=== PATIENT | male | born 1955 | race Caucasian/White ===

== ENCOUNTER 2022-09-28 06:03 | Day surgery (SDC) | payer OTHER, SELFPAY ==
[2022-09-28] VITALS (7 sets, daily range): BP systolic 93–137; BP diastolic 56–91; PULSE 55–61; RESP 16; TEMP 36.1–37.1; O2SAT 93–96; BMI 38.0
[2022-09-28] MEDS: LACTATED RINGERS 1000 ML 1,000 ML 100 ML IV ×2 (06:41→08:26)
[2022-09-28] MEDS: SODIUM CHLORIDE 0.9 % (FLUSH) 10 ML SYRINGE IVF (06:42)
--- NOTE | 2022-09-28 06:43 | SUR.PREOP ---
patient did home covid test on 09/27. nurse viewed home test and appeared negative with only 1 line.
--- NOTE | 2022-09-28 07:15 | CRLHL7_ITS ---
For Patients: As a result of the Cures Act, medical imaging exams and procedure reports are released immediately into your electronic medical record. You may view this report before your referring provider. If you have questions, please contact your health care provider. Indication: Right MPJ infusion Technique: Two fluoroscopic images of the right foot. Fluoroscopic time is 16.6 seconds. IMPRESSION: Fluoroscopic guidance for fusion across the 1st metatarsal-phalangeal joint. Dictated by Bassam Rush MD @ 09/28/2022 2:35:51 PM (Electronically Signed)
[2022-09-28] MEDS: BUPIVACAINE 0.5% 30 ML INJECTION (07:28)
[2022-09-28] MEDS: CLINDAMYCIN 900 MG/50 ML-D5W IVPB (07:30)
--- NOTE | 2022-09-28 07:57 | SUR.OPER ---
PATIENT QUESTIONS ANSWERED SATISFACTORILY PREOPERATIVELY.? PATIENT BROUGHT TO OR #1 PER CART.? Patient positioned supine on OR #1 bed.? The perioperative?team supported arms bilaterally on arm boards.? Final approval of positioning by surgeon.?
--- NOTE | 2022-09-28 08:54 | W.ANESCHARGE ---
Anesthesia Charges Start Date/Time Anesthesia Start Date: 09/28/22 Anesthesia Start Time: 07:18 Stop Date/Time Anesthesia Stop Date: 09/28/22 Anesthesia Stop Time: 08:56 Summary Emergency: No
--- NOTE | 2022-09-28 09:01 | P.GSOP_ITS ---
Operative Note Date of procedure: 09/28/22 Type of Procedure: 1st MPJ fusion right foot Procedure Description: Preoperative diagnosis: Hallux rigidus right Postoperative diagnosis: Hallux rigidus right Procedure: 1st MPJ fusion right After discussing the risks and benefits of the procedure, the patient signed informed consent.? The operative site was marked and the patient was brought to the operating room and placed on the operating table in supine position.? Care was taken to pad the patient's pressure points.?? The patient was then given sedation by anesthesia and 30 mL have% Marcaine plain was injected into the right foot..?? The operative site was then prepped and draped in the usual sterile fashion.? A time-out was then performed. The right foot was exsanguinated and the tourniquet inflated to 250 mm Hg. Linear incision was made over the 1st metatarsophalangeal joint. Incision was carried down through skin subcutaneous tissues. Linear joint capsule incision was made and the capsular and periosteal tissues reflected away from the proximal phalanx and 1st metatarsal head and distal shaft. In a few amount of gouty tophi was identified and excised. Near complete loss of cartilage to opposing sides of the joint. A sagittal saw was used to remove the dorsal, medial and lateral bony spurring. A guide pin was placed in the 1st metatarsal head and a 20 mm Reamer was used to remove cartilage and subchondral bone. Guide pin was removed and placed in the base of the proximal phalanx and a corresponding 20 mm Reamer was used to remove the cartilage and subchondral bone. Wound was thoroughly irrigated normal sterile saline. Opposing fusion surfaces were then fenestrated with guide pin. The foot was loaded with a instrument tray lid to simulate weight-bearing and the hallux was positioned appropriately. Was pinned in place with a K-wire. C-arm confirmed position. A guide pin and cannulated screw was then placed using standard technique from a distal medial to proximal lateral direction. Excellent compression noted across the fusion site. A dorsally based 6 hole plate was applied. Six 3.0 mm locking screws were placed with 3 distal and 3 proximal to the joint fusion site. A rotary bur was used to remodel the 1st metatarsal head and phalangeal base. We thoroughly irrigated normal sterile saline. C-arm confirmed excellent position. Joint capsule was repaired with 3-0 Vicryl. Subcutaneous tissues reapproximate d with 4-0 Monocryl and skin closed with 4-0 Prolene. Sterile dressings were then applied. Tourniquet was released and normal cap refill time returned to all digits. The patient was then woken and transported to the recovery area in stable condition. The patient tolerated the procedure well. CAM boot to be placed in PACU. He was given both written and verbal postoperative instructions. He has pain medications from previous surgery remaining and does not need additional. He has crutches at home and will utilize these. He is weight-bearing to the heel for transfers. Follow-up in 2 days. 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 3.0 cannulated headed screw x1. 3.0 mm locking cortical screw x6. Anesthesia: MAC and local Surgeon: Lex Cook DPM Estimated blood loss (mL): 2 Condition: stable Disposition: same day
--- NOTE | 2022-09-28 09:25 | W.ANESCHARGE ---
Anesthesia Charges Start Date/Time Anesthesia Start Date: 09/28/22 Anesthesia Start Time: 07:18 Stop Date/Time Anesthesia Stop Date: 09/28/22 Anesthesia Stop Time: 08:56 Summary Emergency: No
== END 2022-09-28 10:45 | disposition home or self-care (01) ==
PROVIDERS: PCP Student in an Organized Health Care Education/Training Program; Visit Provider Podiatrist
PROC: (CPT 28740; principal; 2022-09-28 07:15)
DX: M20.21 Hallux rigidus, right foot (principal); M19.071 Primary osteoarthritis, right ankle and foot; M1A.9XX1 Chronic gout, unspecified, with tophus (tophi)
CPT/HCPCS: 28289; 01462; 01480; 73620; 76000; C1713; J1100; J1885; J2250; J2405; J2704; J3010; J3490; J7120; S0077